=== PATIENT | female | born 1965 | race Caucasian/White ===

== ENCOUNTER → 2017-09-18 | Outpatient (CLI) | payer BC | END | disposition home or self-care (01) | LOC: CDC 10:59 | DX: Z01.810 Encounter for preprocedural cardiovascular examination (principal); D17.0 Benign lipomatous neoplasm of skin and subcutaneous tissue of head, face and neck; I45.10 Unspecified right bundle-branch block; R94.31 Abnormal electrocardiogram [ECG] [EKG] | CPT/HCPCS: 93000 ==

== ENCOUNTER 2017-09-26 07:45 | Day surgery (SDC) | payer BC ==
[~2017-09-26] VITALS: Ht 165.1 cm; Wt 83.5 kg
[~2017-09-26 07:45] MED LIST: CALCIUM CITRAT1 EA18 PO; LECITHIN400 MG PO; LIVER-KIDNEY C1 EACH PO; MULTIPLE VITAM1 EACH PO; PROBIOTIC1 EAC1 PO; VITAMIN B-6100 MG PO; VITAMIN C WIT1000 MG PO; VITAMIN D2000 UNI1 PO
[2017-09-26 08:52] VITALS: BP 141/85
[2017-09-26] MEDS ORDERED: HYDROCODON-ACE1 EAC7 PO (10:57)
[2017-09-26 12:13] VITALS: BP 121/70
[2017-09-26 12:53] VITALS: BP 119/66
== END 2017-09-26 13:05 | disposition home or self-care (01) ==
LOC: SDC
PROC: 0JB40ZZ Excision of Right Neck Subcutaneous Tissue and Fascia, Open Approach (ICD-10-PCS; principal; 2017-09-26)
DX: D17.0 Benign lipomatous neoplasm of skin and subcutaneous tissue of head, face and neck (principal); I45.10 Unspecified right bundle-branch block; Z88.2 Allergy status to sulfonamides
CPT/HCPCS: 88304; 93005; J0690; J1100; J2250; J2405; J3010